=== PATIENT | female | born 1955 | race Caucasian/White ===

== ENCOUNTER → 2017-09-13 | Outpatient (CLI) | payer MEDICARE, OTHER ==
[~2017-09-13] MED LIST: ANASPAZ0.125 MG SUBLING; ASPIR 8181 MG PO; ASPIRIN325 PO; BENTYL 10 MG CA10 M1 PO; CELEBREX 200 M200 M1 PO; CHLORPHENIRAMINE4 M4 PO; CLONAZEPAM 1 MG1 M1 PO; COMPAZINE10 MG PO; FLONASE 0.05%50 MCG NASAL; LISINOPRIL20 MG PO; MIRALAX17 GM PO; NEURONTIN 300300 M1 PO; OMEPRAZOLE 20 M20 M1 PO; OXYCODONE HCL 55 MG PO; PRISTIQ100 MG PO; SEROQUEL XR 20200 MG PO; TRAMADOL 50 MG50 MG PO; XARELTO10 MG PO; ZESTORETIC 20-1 EAC2 PO
== END ==
LOC: M.MRI 12:47
DX: M25.462 Effusion, left knee (principal); Z96.652 Presence of left artificial knee joint